=== PATIENT | male | born 1975 | race Hispanic/Latino ===

== ENCOUNTER 2022-11-13 19:29 | Emergency (ER) | payer OTHER ==
[2022-11-13] VITALS (14 sets, daily range): BP systolic 116–129; BP diastolic 67–97
== END 2022-11-13 23:48 | disposition home or self-care (01) | DRG 552 ==
LOC: ED 19:29
DX: S16.1XXA Strain of muscle, fascia and tendon at neck level, initial encounter (principal); S29.012A Strain of muscle and tendon of back wall of thorax, initial encounter; V43.52XA Car driver injured in collision with other type car in traffic accident, initial encounter